=== PATIENT | female | born 1955 | race Caucasian/White ===

== ENCOUNTER 2017-07-04 12:58 | Observation (INO) | payer OTHER ==
[~2017-07-04] VITALS: Ht 167.6 cm; Wt 79.4 kg
[~2017-07-04 12:58] MED LIST: ADVAIR 100/501 DISK IH; FLAGYL500 MG PO; HYDROCHLOROTHIA25 MG PO; SYNTHROID88 MCG PO
[2017-07-04 13:41] LABS: BASOPHIL COUNT 0.1 K/uL (0-0.1); EOSINOPHIL (%) 7.5 % (0-5); EOSINOPHIL COUNT 0.7 K/uL (0-0.3); HEMATOCRIT 48.6 % (36.0-46.0); IMMATURE GRANULOCYTE (%) 0.3 % (0.0-0.7); INSTRUMENT ABS NEUTROPHIL CT 5.5 K/uL; LYMPHOCYTE COUNT 2.2 K/uL (1.0-2.8); MCH 29.6 PG (29.0-34.0); MCV 87.3 FL (83-99); MEAN PLAT.VOLUME 9.8 uM^3 (9.5-12.4); MONOCYTE (%) 6.5 % (3-12); MONOCYTE COUNT 0.6 K/uL (0-0.8); NEUTROPHIL (%) 60.8 % (45-76); NEUTROPHIL COUNT 5.5 K/uL (1.8-6.4); PLATELET COUNT 362 K/uL (156-360); RBC DIS.WIDTH-SD 41.4 % (39-53); RED BLOOD COUNT 5.57 M/uL (3.80-5.20)
[2017-07-04 13:48] LABS: PROTHROMBIN TIME 11.2 SEC (10.2-12.9)
[2017-07-04 13:50] LABS: CHLORIDE 104 mEq/L (99-109); POTASSIUM 3.6 mEq/L (3.7-5.4); PTT 32.3 SEC (25-37); SODIUM 143 mEq/L (136-147)
[2017-07-04 13:51] LABS: GLUCOSE 110 mg/dL (70-99)
[2017-07-04 13:53] LABS: ANION GAP 16 MEQ/L (2-14)
[2017-07-04 13:55] LABS: GFR ESTIMATE (CALCULATED) > 59 mL/min/
[2017-07-04 13:56] LABS: UREA NITROGEN (BUN) 11 mg/dL (9-23)
[2017-07-04 14:02] LABS: TROP-I INTERPRETATION NEGATIVE; TROPONIN-I 0.02 ng/mL (0.0-0.30)
[2017-07-04] MEDS ORDERED: CRESTOR10 MG PO (16:52)
[2017-07-04] MEDS ORDERED: LO-DOSE ASPIRIN81 M2 PO (16:53)
[2017-07-04] MEDS ORDERED: CALAN80 MG PO (16:56)
[2017-07-04] MEDS ORDERED: XANAX0.5 MG PO (16:58)
[2017-07-04] MEDS ORDERED: ESTROVEN ENERG1 EACH PO (17:00)
[2017-07-04 17:32] VITALS: BP 117/73
[2017-07-04 19:23] VITALS: BP 137/69
[2017-07-04 23:44] VITALS: BP 104/62
[2017-07-05 03:36] VITALS: BP 111/66
[2017-07-05 08:42] VITALS: BP 134/70
[2017-07-05] MEDS ORDERED: CALAN SR,COVER120 MG PO (10:16)
[2017-07-05] MEDS ORDERED: XARELTO20 MG PO (10:16)
== END 2017-07-05 13:59 | disposition home or self-care (01) ==
LOC: EME 12:58 → 4EAST 14:33 → EDOF 14:33 → 4EAST 14:33 → ENRESERV 14:35 → 4EAST 16:55
PROVIDERS: Emergency Medicine
DX: I48.91 Unspecified atrial fibrillation (principal); I47.2 Ventricular tachycardia; I10 Essential (primary) hypertension; E78.5 Hyperlipidemia, unspecified; J44.9 Chronic obstructive pulmonary disease, unspecified; Z87.19 Personal history of other diseases of the digestive system; Z90.49 Acquired absence of other specified parts of digestive tract; Z82.49 Family history of ischemic heart disease and other diseases of the circulatory system; E03.9 Hypothyroidism, unspecified; K21.9 Gastro-esophageal reflux disease without esophagitis; Z88.2 Allergy status to sulfonamides; Z79.82 Long term (current) use of aspirin
CPT/HCPCS: 71010; 80048; 84443; 84484; 85025; 85610; 85730; 93005; 94640; 94640 76; 99281; 99285; G0378; J7030; J7050

== ENCOUNTER → 2017-09-04 | Outpatient (CLI) | payer OTHER ==
[~2017-09-04] MED LIST changes: +CALAN SR,COVER120 MG PO; +CALAN80 MG PO; +CRESTOR10 MG PO; +ESTROVEN ENERG1 EACH PO; +LO-DOSE ASPIRIN81 M2 PO; +XANAX0.5 MG PO; +XARELTO20 MG PO
== END | disposition home or self-care (01) ==
LOC: RES 07:51
DX: J98.4 Other disorders of lung (principal)
CPT/HCPCS: 94060; 94726; 94729

== ENCOUNTER → 2017-12-19 | Outpatient (CLI) | payer OTHER | END | disposition home or self-care (01) | LOC: RAD 12:33 | DX: R07.2 Precordial pain (principal) | CPT/HCPCS: 75574 ==